=== PATIENT | male | born 1975 | race African-American/Black ===

== ENCOUNTER 2020-10-03 13:57 | Emergency (ER) | payer SELFPAY ==
[2020-10-03] MEDS ORDERED: ALBUTEROL SULFATE 0.083% NEB 2.5 MG/3 ML AMPUL NEB ONE (14:22)
[2020-10-03] MEDS ORDERED: METHYLPREDNISOLONE INJ 125 MG/2 ML SDV IV ONE (14:22)
--- NOTE | 2020-10-03 14:25 | ER Document Report ---
ED Medical Screen (RME) - General Chief Complaint: Shortness Of Breath Stated Complaint: COUGH/SOB/LOSS OF TASTE/CHILLS/NAUSEA Time Seen by Provider: 10/03/20 14:18 Mode of Arrival: Ambulatory Information source: Patient Notes: 45-year-old male presented to ED with severe shortness of breath and very diminished lung sounds. Patient coughs with each deep breath. He states he had asthma as a child but has had no asthma since then has had no COPD. Patient has loss of sense of taste smell. We will get Covid testing as well as blood work flu strep chest x-ray and start him on steroids and albuterol and duo nebs. He will be seen by another provider. I have requested he be put on a monitor. I have greeted and performed a rapid initial assessment of this patient. A comprehensive ED assessment and evaluation of the patient, analysis of test results and completion of medical decision making process will be conducted by an additional ED providers. - Related Data Allergies/Adverse Reactions: No Known Allergies Allergy (Unverified 10/03/20 14:08) Physical Exam - Vital signs Vitals: Temp Pulse Resp BP Pulse Ox 99.2 F 92 24 H 145/76 H 93 10/03/20 14:04 10/03/20 14:04 10/03/20 14:04 10/03/20 14:04 10/03/20 14:04 Course - Vital Signs Vital signs: Temp Pulse Resp BP Pulse Ox 99.2 F 92 24 H 145/76 H 93 10/03/20 14:04 10/03/20 14:04 10/03/20 14:04 10/03/20 14:04 10/03/20 14:04
[2020-10-03] MEDS ORDERED: IPRATROPIUM/ALBUTEROL 0.5-2.5 MG/3 ML AMPUL NEB SCH (14:30)
[2020-10-03 15:05] LABS: ABSOLUTE BASOPHILS # (AUTO) 0.1 10^3/uL (0.0-0.2); ABSOLUTE LYMPHOCYTES (AUTO) 2.2 10^3/uL (0.5-4.7); ABSOLUTE MONOCYTES (AUTO) 0.7 10^3/uL (0.1-1.4); ABSOLUTE NEUT (AUTO) 5.8 10^3/uL (1.7-8.2); BASOPHILS % (AUTO) 0.7 % (0-2); EOSINOPHILS % (AUTO) 0.3 % (0-6); HEMOGLOBIN 15.3 g/dL (13.5-17.0); LYMPHOCYTES % (AUTO) 24.8 % (13-45); MEAN CORPUSCULAR HEMOGLOBIN 27.5 pg (27.0-33.4); MEAN CORPUSCULAR VOLUME 81 fl (80-97); MONOCYTES % (AUTO) 8.2 % (3-13); PLATELET COUNT 196 10^3/uL (150-450); RED BLOOD COUNT 5.58 10^6/uL (4.35-5.55); RED CELL DISTRIBUTION WIDTH 13.8 % (11.5-14.0); TOTAL CELLS COUNTED % (AUTO) 100 %; WHITE BLOOD COUNT 8.7 10^3/uL (4.0-10.5)
--- NOTE | 2020-10-03 15:06 | RADIOLOGY REPORT (SQ) ---
EXAM DESCRIPTION: CHEST SINGLE VIEW IMAGES COMPLETED DATE/TIME: 10/03/2020 1:46 pm REASON FOR STUDY: Short of breath very diminished lung sounds COMPARISON: None. EXAM PARAMETERS: NUMBER OF VIEWS: One view. TECHNIQUE: Single frontal radiographic view of the chest acquired. RADIATION DOSE: NA LIMITATIONS: None. FINDINGS: LUNGS AND PLEURA: Patchy bibasilar opacities with more confluent consolidation in the righ t lung base may represent multifocal pneumonia. No pneumothorax. No pleural effusion. MEDIASTINUM AND HILAR STRUCTURES: No masses. Contour normal. HEART AND VASCULAR STRUCTURES: Heart normal in size. Normal vasculature. BONES: No acute findings. HARDWARE: None in the chest. OTHER: No other significant finding. IMPRESSION: Patchy bibasilar opacities with more confluent consolidation at the right lung base sugg estive of multifocal pneumonia. TECHNICAL DOCUMENTATION: JOB ID: [id number] [employer]- All Rights Reserved Reading location - IP/workstation name: [email or web address]
[2020-10-03 15:13] LABS: VENOUS BLOOD BASE EXCESS 2.6 mmol/L; VENOUS BLOOD HCO3 29.3 mmol/L (20-32); VENOUS BLOOD PCO2 52.9 mmHg (35-63); VENOUS BLOOD PH 7.36 (7.30-7.42)
[2020-10-03 15:20] LABS: INTERNATIONAL RATION (INR) 1.03; PROTHROMBIN TIME 13.7 SEC (11.4-15.4)
[2020-10-03 15:29] LABS: A TYPE INFLUENZA AG NEGATIVE (NEGATIVE); B INFLUENZA AG NEGATIVE (NEGATIVE)
[2020-10-03 15:30] LABS: ALBUMIN 4.4 g/dL (3.5-5.0); ALKALINE PHOSPHATASE 119 U/L (38-126); ANION GAP 12 (5-19); ASPARTATE AMINO TRANSFERASE 33 U/L (17-59); BILIRUBIN,DIRECT 0.3 mg/dL (0.0-0.4); BILIRUBIN,TOTAL 0.8 mg/dL (0.2-1.3); BLOOD UREA NITROGEN 10 mg/dL (7-20); CALCIUM 9.2 mg/dL (8.4-10.2); CARBON DIOXIDE 26 mmol/L (22-30); CHLORIDE 98 mmol/L (98-107); GLUCOSE 241 mg/dL (75-110); POTASSIUM 4.3 mmol/L (3.6-5.0); TOTAL PROTEIN 8.3 g/dL (6.3-8.2)
[2020-10-03] MEDS ORDERED: CEFTRIAXONE 1 GM/D5W RTU 1 GM/50 ML RTUPB IV ONE (16:28)
[2020-10-03] MEDS ORDERED: DEXAMETHASONE SOD PHOSPHATE INJ 4 MG/1 ML VIAL IV ONE (16:29)
[2020-10-03] MEDS ORDERED: NORMAL SALINE 1000 ML 1,000 ML IV ONE (16:29)
--- NOTE | 2020-10-03 17:11 | ER Document Report ---
Entered by BORA HIDALGO SCRIBE 10/03/20 1626 Acting as scribe for:TRAN SINGLETON, ED General - General Chief Complaint: Shortness Of Breath Stated Complaint: COUGH/SOB/LOSS OF TASTE/CHILLS/NAUSEA Time Seen by Provider: 10/03/20 14:18 Mode of Arrival: Ambulatory Information source: Patient Notes: This 45 year old male patient with history of obesity and asthma, presents to the emergency department today with complaints of general weakness, a cough, and shortness of breath for the past x1 week. Patient reports loss of taste for the past x3-4 days. Denies any fevers. 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 Patient denies having a PCP and has been out of albuterol for his asthma for some time. - Related Data Allergies/Adverse Reactions: No Known Allergies Allergy (Verified 10/03/20 14:30) Past Medical History - General Information source: Patient - Social History Smoking Status: Former Smoker Cigarette use (# per day): No Chew tobacco use (# tins/day): No Frequency of alcohol use: Occasional Drug Abuse: None Family History: Reviewed & Not Pertinent Pulmonary Medical History: Reports: Hx Asthma Review of Systems - Review of Systems Constitutional: See HPI, Weakness. denies: Fever EENT: See HPI, Other - loss of taste Cardiovascular: No symptoms reported Respiratory: See HPI, Cough, Short of breath Gastrointestinal: No symptoms reported Genitourinary: No symptoms reported Male Genitourinary: No symptoms reported Musculoskeletal: No symptoms reported Skin: No symptoms reported Hematologic/Lymphatic: No symptoms reported Neurological/Psychological: No symptoms reported -: Yes All other systems reviewed and negative Physical Exam - Vital signs Vitals: Temp Pulse Resp BP Pulse Ox 99.2 F 92 24 H 145/76 H 93 10/03/20 14:04 10/03/20 14:04 10/03/20 14:04 10/03/20 14:04 10/03/20 14:04 - General General appearance: Appears well, Alert - HEENT Head: Normocephalic, Atraumatic Eyes: Normal Pupils: PERRL - Respiratory Respiratory status: Tachypnea Chest status: Nontender Chest palpation: Normal Notes: Mildly diminished breath sounds bilaterally. - Cardiovascular Rhythm: Regular Heart sounds: Normal auscultation Murmur: No - Abdominal Inspection: Obese Distension: No distension Bowel sounds: Normal Tenderness: Nontender - Extremities General upper extremity: Normal inspection, Normal ROM General lower extremity: Normal inspection, Normal ROM. No: Edema - Neurological Neuro grossly intact: Yes Cognition: Normal Orientation: AAOx4 Isabel Coma Scale Eye Opening: Spontaneous Mcintosh Coma Scale Verbal: Oriented Isabel Coma Scale Motor: Obeys Commands Mcintosh Coma Scale Total: 15 Speech: Normal Sensory: Normal - Psychological Associated symptoms: Normal affect, Normal mood - Skin Skin Temperature: Warm Skin Moisture: Dry Skin Color: Normal Course - Re-evaluation Re-evalutation: 10/03/20 19:14 MDM 45 year old with asthma and elevated Blood sugar. Also lost taste and smell about 3 days ago. Nontoxic here. Explained likely covid and self quarentine. Discussed return here precautions and he expressed understanding. - Vital Signs Vital signs: Temp Pulse Resp BP Pulse Ox 99.2 F 92 21 H 134/87 H 100 10/03/20 14:04 10/03/20 14:04 10/03/20 19:01 10/03/20 19:01 10/03/20 19:01 - Laboratory Results Result Diagrams: 10/03/20 14:20 10/03/20 14:20 Laboratory Results Interpreted: 10/03/20 10/03/20 10/03/20 14:20 14:20 14:20 RBC 5.58 H Sodium 135.6 L Glucose 241 H C-Reactive Protein 67.5 H Total Protein 8.3 H Critical Laboratory Results Reviewed: No Critical Results - Radiology Results Critical Radiology Results Reviewed: No Critical Results Discharge - Discharge Clinical Impression: COVID-19, Hyperglycemia Pneumonia Qualifiers: Pneumonia type: due to unspecified organism Laterality: bilateral Lung location: unspecified part of lung Qualified Code(s): J18.9 - Pneumonia, unspecified organism Condition: Stable Disposition: HOME, SELF-CARE Instructions: COVID-19 Guidance for Persons Under Investigation, Asthma ([facility]), Family Physicians / Practices, Hyperglycemia ([facility]) Additional Instructions: Your blood sugar was too high. Have that rechecked. Take 1 gram of vitamin tablets dialy. Take 50mg Zinc daily and 162 mg - 2 baby aspirin - daily. Self quarentine. Do not work while you are sick. Please return here for chest pain, shortness of breath or other problems or co ncerns. Take your medicine s as directed. Your medicine has been sent to [facility]. Prescriptions: Albuterol Sulfate [Albuterol Sulfate Hfa] 2 puff IH TID #1 hfa.aer.ad Methylprednisolone [Medrol Dosepack (4 mg/Tab) 21 Tab/Dosepak] 4 mg PO ASDIR PRN #1 tab.ds.pk PRN Reason: Zinc [Zinc Chelated] 50 mg PO DAILY #21 tablet Azithromycin [Zithromax 250 mg Tablet] 250 mg PO ASDIR PRN #6 tablet PRN Reason: Forms: Return to Work I personally performed the services described in the documentation, reviewed and edited the documentation which was dictated to the scribe in my presence, and it accurately records my words and actions.
[2020-10-03] MEDS ORDERED: INSULIN REG, HUMAN 100 UNIT/ML 3 ML VIAL (PYX) IV ONE (18:27)
[2020-10-03 19:35] VITALS: BP 134/87
--- NOTE | 2020-10-03 20:37 | EKG REPORT ---
SEVERITY:- NORMAL ECG - SINUS RHYTHM : Confirmed by: Willam Dorsey MD 03-Oct-2020 20:36:51
== END 2020-10-03 19:47 | disposition home or self-care (01) ==
LOC: ER 13:57
DX: U07.1 COVID-19 (principal); J12.89 Other viral pneumonia; J45.909 Unspecified asthma, uncomplicated; Z87.891 Personal history of nicotine dependence; R73.9 Hyperglycemia, unspecified
CPT/HCPCS: 93005; 94640; 99285; 96361; 96375; 96365; 36415; 87040; 87070; 87880; 83605; 85025; 85610; 87635; 86140; 80053; 85379; 82803; 87804; 71045; 93010; J1100; J2930; J1815; J7030; J0696; J7613; C9803